=== PATIENT | female | born 1995 | race Caucasian/White ===

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

== ENCOUNTER 2017-09-20 21:13 | Outpatient (CLI) | payer MEDICAID ==
[2017-09-20 21:38] VITALS: BP 111/58
[2017-09-20] MEDS ORDERED: LACTATED RINGERS 500 ML IV ONE (22:10)
[2017-09-20] MEDS ORDERED: LACTATED RINGERS 1,000 ML ONE (22:22)
[2017-09-20 23:44] LABS: Bilirubin,Urine NEG (Negative); Blood,Urine NEG (Negative); Color,Urine Yellow (Yellow); Mucus,Urine 3+ /HPF
[2017-09-21] MEDS ORDERED: PERCOCET 5/325 PO ONE (00:09)
== END 2017-09-21 00:43 | disposition home or self-care (01) ==
LOC: TRG 21:13
PROVIDERS: ATTEND Obstetrics & Gynecology
DX: O47.02 False labor before 37 completed weeks of gestation, second trimester (principal); Z3A.22 22 weeks gestation of pregnancy
CPT/HCPCS: 59025; 81001; 96360; J7120

== ENCOUNTER 2017-10-30 21:56 | Outpatient (CLI) | payer MEDICAID ==
[2017-10-30] MEDS ORDERED: LACTATED RINGERS 1,000 ML IV ONE (22:20)
[2017-10-30 22:40] VITALS: BP 113/55
[2017-10-30] MEDS ORDERED: TYLENOL PO ONE (23:11)
== END 2017-10-30 23:38 | disposition home or self-care (01) ==
LOC: TRG 21:56
PROVIDERS: ATTEND Obstetrics & Gynecology
DX: O26.892 Other specified pregnancy related conditions, second trimester (principal); R42 Dizziness and giddiness; Z87.891 Personal history of nicotine dependence; Z3A.27 27 weeks gestation of pregnancy
CPT/HCPCS: 59025; 82962

== ENCOUNTER 2018-01-06 21:02 | Outpatient (CLI) | payer MEDICAID ==
[2018-01-06 22:54] VITALS: BP 125/74
== END 2018-01-06 22:56 | disposition home or self-care (01) ==
LOC: TRG 21:02
PROVIDERS: ATTEND Obstetrics & Gynecology
DX: O47.1 False labor at or after 37 completed weeks of gestation (principal); Z3A.38 38 weeks gestation of pregnancy; Z87.891 Personal history of nicotine dependence
CPT/HCPCS: 59025

== ENCOUNTER 2018-09-10 15:17 | Emergency (ER) | payer MEDICAID ==
--- NOTE | 2018-09-10 15:27 | Emergency Department Report ---
Blank Doc - Documentation Documentation: This is a 23-year-old female that presents with pelvic pain. Stated has posit esther test at home 2 days ago. Denies any vaginal bleeding. This initial assessment/diagnostic orders/clinical plan/treatment(s) is/are subject to change based on patient's health status, clinical progression and re- assessment by fellow clinical providers in the ED. Further treatment and workup at subsequent clinical providers discretion. Patient/guardians urged not to elope from the ED as their condition may be serious if not clinically assessed and managed. Initial orders include: 1- Patient sent to [facility] for further evaluation and treatment 2- labs 3- US OB
[2018-09-10 15:28] VITALS: BP 116/57
[2018-09-10 15:56] LABS: Eosinophils # (Auto) 0.1 K/mm3 (0.0-0.4); Eosinophils % (Auto) 0.8 % (0.0-4.3); Hematocrit 37.2 % (30.3-42.9); Hemoglobin 12.4 gm/dl (10.1-14.3); Lymphocytes % (Auto) 41.2 % (13.4-35.0); Mean Corpuscular HGB Conc 33 % (30-34); Mean Corpuscular Volume 84 fl (79-97); Monocytes # (Auto) 0.5 K/mm3 (0.0-0.8); Monocytes % (Auto) 6.6 % (0.0-7.3); Platelet Count 243 K/mm3 (140-440); Red Blood Count 4.42 M/mm3 (3.65-5.03); Red Cell Distribution Width 15.8 % (13.2-15.2)
[2018-09-10 15:59] LABS: Basophils % (Auto) 0.5 % (0.0-1.8)
[2018-09-10 16:02] LABS: Bacteria,Urine 1+ /HPF (Negative); Bilirubin,Urine NEG (Negative); Blood,Urine NEG (Negative); Color,Urine Yellow (Yellow); Mucus,Urine 3+ /HPF; Urobilinogen,Urine < 2.0 mg/dL (<2.0)
== END 2018-09-10 16:55 | disposition left against medical advice (07) ==
LOC: ED 15:17
DX: O26.891 Other specified pregnancy related conditions, first trimester (principal); R10.2 Pelvic and perineal pain; Z3A.01 Less than 8 weeks gestation of pregnancy; Z53.21 Procedure and treatment not carried out due to patient leaving prior to being seen by health care provider
CPT/HCPCS: 36415; 81001; 84702; 85025

== ENCOUNTER 2019-05-03 01:15 | Emergency (ER) | payer MEDICAID ==
[2019-05-03] MEDS ORDERED: SODIUM CHLORIDE 0.9% 1000 ML 1,000 ML IV ONE (01:33)
[2019-05-03] MEDS ORDERED: ONDANSETRON 4 MG/2 ML INJ IV ONE (01:33)
--- NOTE | 2019-05-03 01:37 | Emergency Department Report ---
HPI - General Chief Complaint: Abdominal Pain Time Seen by Provider: 05/03/19 01:22 - HPI HPI: 23-year-old -K[place] female presents to the emergency department with a complaint of abdominal and pelvic pain, as well as some nausea without vomiting, that started earlier today. The patient gave about 1 week ago at [facility]. It was a vaginal delivery in a full-term gestation. Patient denies any complications with the or delivery. She still has some mild vaginal bleeding since the delivery. She denies any discharge, dysuria, fever. She tried taking some ibuprofen but says that this irritated her abdomen even worse. No recent travel or sick contacts at home. Her [facility] [employer] is through [facility]. ED Past Medical Hx - Past Medical History Previous Medical History?: No Hx Hypertension: No Hx Diabetes: No Hx Deep Vein Thrombosis: No Hx Renal Disease: No Hx Sickle Cell Disease: No Hx Seizures: No Hx Asthma: No Hx HIV: No - Surgical History Past Surgical History?: No - Social History Smoking Status: Never Smoker Substance Use Type: None - Medications Home Medications: Home Medications Medication Instructions Recorded Confirmed Last Taken Type Ferrous Sulfate [Feosol 325 MG tab] 325 mg PO BID #60 tablet 01/12/18 Unknown Rx Ibuprofen [Motrin] 800 mg PO Q8HR PRN #30 tablet 01/12/18 Unknown Rx Pnv No.95/Ferrous Fum/Folic AC 1 tab PO DAILY 01/12/18 01/12/18 Unknown History [ Formula Tablet] Vit Calc,Iron,Folic 1 each PO DAILY #30 tablet 01/12/18 Unknown Rx [ Vitamins] HYDROcodone/APAP 5-325 [Irving 1 each PO Q6HR PRN #10 tablet 05/03/19 Unknown Rx 5-325 mg TAB] Ondansetron [Zofran Odt] 4 mg PO Q8HR PRN #14 tab.rapdis 05/03/19 Unknown Rx Sulfamethoxazole/Trimethoprim 1 each PO BID #14 tablet 05/03/19 Unknown Rx [Bactrim DS TAB] ED Review of Systems ROS: Stated complaint: ABD PAIN/POST DELIVERY Other details as noted in HPI Comment: All other systems reviewed and negative Constitutional: denies: chills, fever Eyes: denies: eye pain, vision change ENT: denies: ear pain Respiratory: denies: cough, shortness of breath Cardiovascular: denies: chest pain, palpitations Gastrointestinal: abdominal pain, nausea. denies: vomiting Genitourinary: other (pelvic pain). denies: dysuria, discharge Musculoskeletal: denies: back pain, arthralgia Skin: denies: rash, lesions Neurological: denies: headache, weakness Physical Exam - Physical Exam Vital Signs: Vital Signs 05/03/19 05/03/19 01:23 01:24 Temperature 99 F 99 F Pulse Rate 96 H 96 H Respiratory 16 16 Rate Blood Pressure 96/57 Blood Pressure 96/57 [Left] O2 Sat by Pulse 98 98 Oximetry Physical Exam: GENERAL: The patient is well-developed well-nourished. HEENT: Normocephalic. Atraumatic. Patient has moist mucous membranes. EYES: Extraocular motions are intact. NECK: Supple. Trachea is midline. CHEST/LUNGS: Clear to auscultation. There is no respiratory distress noted. HEART/CARDIOVASCULAR: Regular. There is no tachycardia. There is no murmur. ABDOMEN: Abdomen is soft. Lower abdominal tenderness to palpation. No guarding. Patient has normal bowel sounds. There is no abdominal distention. SKIN:Skin is warm and dry. . NEURO: The patient is awake, alert, and oriented. The patient is cooperative. The patient has no focal neurologic deficits. Normal speech. MUSCULOSKELETAL: There is no tenderness or deformity. There is no evidence of acute injury. ED Course Vital Signs 05/03/19 05/03/19 01:23 01:24 Temperature 99 F 99 F Pulse Rate 96 H 96 H Respiratory 16 16 Rate Blood Pressure 96/57 Blood Pressure 96/57 [Left] O2 Sat by Pulse 98 98 Oximetry - Reevaluation(s) Reevaluation #1: 05/03/19 04:22 I was able to obtain the CT scan of the abdomen and pelvis with IV contrast that was performed earlier in the day at [facility]. These results show nonspecific fat stranding along both paracolic gutters without significant bowel wall thickening. The appendix is normal and therefore a colitis is suspected, those these findings may be related to recent postoperative state. Prominence of the uterus is also likely related to the patient being recently . ED Medical Decision Making - Lab Data Result diagrams: 05/03/19 01:38 05/03/19 01:38 - Radiology Data Radiology results: report reviewed, image reviewed interpreted by me: Chest x-ray does not show any pleural effusions, pneumonia, pneumothorax, focal consolidation, or any other acute process. Abdominal x-ray shows nonspecific nonobstructive bowel gas. Pelvic ultrasound complete INDICATION: Pelvic pain, vaginal delivery one week ago FINDINGS: uterus is noted. There is some mild thickening of the endometrial cavity measuring 2.3 cm. There is no Doppler signal within the endometrial cavity. The uterus measures 15 cm in length. The ovaries are normal in appearance measuring 3 and 2.8 cm respectively. There is arterial flow in both ovaries. There is a small amount of free fluid in the cul-de-sac. IMPRESSION: There is thickening of the endometrium. There is no Doppler signal or vascularity within the endometrial cavity to suggest retained products of gestation. Signer Name: Jam Bhatia MD - Medical Decision Making This patient presents with a one-day history of some lower abdominal pain, nausea and vomiting. She is about one week status post vaginal delivery that was done at [facility]. At first, the patient had failed to mention that she had gone to [facility] this morning for her same symptoms and had a CT scan done at that time. On examination she is tender to palpation but the abdomen is soft, nondistended and nontoxic in appearance. Her labs have so far been unremarkable including CBC and CMP. I was able to obtain the CT scan results from [place] and it showed the potential for some colitis. A transvaginal ultrasound was done here that did not show any ovarian torsion or products of retained conception and just showed a slightly thickened uterus. Her vital signs have been stable throughout her ED course. There is been no further vomiting since being in the emergency department. She appears safe for discharg e home. She has been given some antibiotics for this potential colitis, a small amount of pain medication and some Zofran ODT for any further nausea or vomiting. She has been instructed to return to the ER with any worsening of her symptoms or any acute distress. I did check the [facility] prescription monitoring and the patient has only one filled prescription for a scheduled medication within the last year. - Differential Diagnosis ovarian torsion, products of retained conception, colitis, diverticulitis Critical Care Time: No Critical care attestation.: If time is entered above; I have spent that time in minutes in the direct care of this critically ill patient, excluding procedure time. ED Disposition Clinical Impression: Colitis Abdominal pain Qualifiers: Abdominal location: unspecified location Qualified Code(s): R10.9 - Unspecified abdominal pain Disposition: TO HOME OR SELFCARE Is pt being admited?: No Condition: Stable Instructions: Abdominal Pain (ED), Infectious Colitis (ED) Additional Instructions: Please follow up with your primary care physician and [employer]. I am giving you a referral for [place] to follow up regarding your abdominal pains. Take the antibiotics as prescribed. Return to the emergency Department with any worsening of your symptoms or any acute distress. Prescriptions: Sulfamethoxazole/Trimethoprim [Bactrim DS TAB] 1 each PO BID #14 tablet HYDROcodone/APAP 5-325 [Irving 5-325 mg TAB] 1 each PO Q6HR PRN #10 tablet PRN Reason: Pain Ondansetron [Zofran Odt] 4 mg PO Q8HR PRN #14 tab.rapdis PRN Reason: Nausea Referrals: [facility] [Provider Group] - 2-3 Days PCP, Your [Other] - 2-3 Days OBGYN, Your [Other] - 2-3 Days Time of Disposition: 04:24
[2019-05-03 01:51] LABS: Basophils % (Auto) 0.1 % (0.0-1.8); Eosinophils % (Auto) 0.2 % (0.0-4.3); Hematocrit 36.8 % (30.3-42.9); Hemoglobin 11.9 gm/dl (10.1-14.3); Lymphocytes # (Auto) 0.8 K/mm3 (1.2-5.4); Lymphocytes % (Auto) 7.3 % (13.4-35.0); Mean Corpuscular HGB Conc 32 % (30-34); Mean Corpuscular Volume 85 fl (79-97); Monocytes # (Auto) 0.4 K/mm3 (0.0-0.8); Monocytes % (Auto) 3.4 % (0.0-7.3); Platelet Count 306 K/mm3 (140-440); Red Blood Count 4.33 M/mm3 (3.65-5.03); Red Cell Distribution Width 15.8 % (13.2-15.2)
[2019-05-03 02:11] LABS: Alanine Aminotransferase 18 units/L (7-56); Albumin 3.5 g/dL (3.9-5); BUN/Creatinine Ratio 13; Blood Urea Nitrogen 9 mg/dL (7-17); Calcium 8.7 mg/dL (8.4-10.2); Hemolysis Index 0
[2019-05-03 02:12] LABS: Bilirubin,Direct < 0.2 mg/dL (0-0.2)
--- NOTE | 2019-05-03 02:19 | XRay Report ---
ABDOMEN 1 VIEW(S) INDICATION / CLINICAL INFORMATION: Abd pain, recent vag delivery. COMPARISON: None available. FINDINGS: TUBES / LINES: None. BOWEL GAS PATTERN/EXTRALUMINAL GAS: There is contrast media in the colon. No pneumatosis or secondary signs of free air. ADDITIONAL FINDINGS: There is contrast in the urinary bladder. IMPRESSION: 1. There is contrast in the colon in the urinary bladder indicating recent imaging, presumably recent abdominal CT. No free air is seen. There is minimal subsegmental atelectasis in the right lung base. Signer Name: Jam Bhatia MD Signed: 05/03/2019 2:15 AM Workstation Name: [id number]
--- NOTE | 2019-05-03 04:09 | Ultrasound Report ---
Pelvic ultrasound complete INDICATION: Pelvic pain, vaginal delivery one week ago FINDINGS: uterus is noted. There is some mild thickening of the endometrial cavity measuri ng 2.3 cm. There is no Doppler signal within the endometrial cavity. The uterus measures 15 cm in length. The ovaries are normal in appearance measuring 3 and 2.8 cm respectively. There is arterial flow in b oth ovaries. There is a small amount of free fluid in the cul-de-sac. IMPRESSION: There is thickening of the endometrium. There is no Doppler signal or vascularity within the endometr ial cavity to suggest retained products of gestation. Signer Name: Jam Bhatia MD Signed: 05/03/2019 4:05 AM Workstation Name: [id number]
[2019-05-03 04:53] VITALS: BP 109/64
== END 2019-05-03 05:04 | disposition home or self-care (01) ==
LOC: ED 01:15
DX: K52.9 Noninfective gastroenteritis and colitis, unspecified (principal); Z79.899 Other long term (current) drug therapy
CPT/HCPCS: 36415; 74022; 80048; 80076; 83690; 85025; 93975; 96361; 96374; 99285; J2405; J7030

== ENCOUNTER 2021-01-30 17:33 | Emergency (ER) | payer MEDICAID ==
[2021-01-30 17:51] VITALS: BP 129/70
--- NOTE | 2021-01-30 18:06 | Emergency Department Report ---
ED ENT HPI - General Chief complaint: Headache Stated complaint: LEFT SIDE FACE HURT,MIGRANE X2 Time Seen by Provider: 01/30/21 17:56 Source: patient Mode of arrival: Ambulatory Limitations: No Limitations - History of Present Illness Initial comments: Patient is a 25-year-old female who presents emergency room with complaints of right lower dental pain that began yesterday. He states that she has an impacted wisdom tooth she states that she saw a dentist a couple weeks ago and needs to have the wisdom tooth extracted. She states her next appointment is not until March she states that she has been taking Tylenol without much relief. She states that she is also noticed some mild swelling in that region. She denies any fever, vomiting, difficulty swallowing, difficulty breathing. She states it is causing her to have a headache due to the dental pain. No past medical history. No allergies to medications. She states that she is 7 weeks and her [employer] is at [employer]. - Related Data Home Medications Medication Instructions Recorded Confirmed Last Taken Pnv No.95/Ferrous Fum/Folic AC 1 tab PO DAILY 01/12/18 01/12/18 Unknown [ Formula Tablet] Previous Rx's Medication Instructions Recorded Last Taken Type Ferrous Sulfate [Feosol 325 MG tab] 325 mg PO BID #60 tablet 01/12/18 Unknown Rx Ibuprofen [Motrin] 800 mg PO Q8HR PRN #30 tablet 01/12/18 Unknown Rx Vit Calc,Iron,Folic 1 each PO DAILY #30 tablet 01/12/18 Unknown Rx [ Vitamins] HYDROcodone/APAP 5-325 [[place] 1 each PO Q6HR PRN #10 tablet 05/03/19 Unknown Rx 5-325 mg TAB] Ondansetron [Zofran Odt] 4 mg PO Q8HR PRN #14 tab.rapdis 05/03/19 Unknown Rx Sulfamethoxazole/Trimethoprim 1 each PO BID #14 tablet 05/03/19 Unknown Rx [Bactrim DS TAB] Acetaminophen [Tylenol] 650 mg PO Q8HR PRN #30 capsule 01/30/21 Unknown Rx Chlorhexidine Mouthwash [Peridex] 15 ml MM BID #1 bottle 01/30/21 Unknown Rx Penicillin Vk [Veetids TAB] 500 mg PO QID 7 Days #56 tablet 01/30/21 Unknown Rx Allergies Allergy/AdvReac Type Severity Reaction Status Date / Time No Known Allergies Allergy Verified 09/10/18 15:28 ED Dental HPI - General Chief complaint: Headache Stated complaint: LEFT SIDE FACE HURT,MIGRANE X2 Time Seen by Provider: 01/30/21 17:56 Source: patient Mode of arrival: Ambulatory Limitations: No Limitations - Related Data Home Medications Medication Instructions Recorded Confirmed Last Taken Pnv No.95/Ferrous Fum/Folic AC 1 tab PO DAILY 01/12/18 01/12/18 Unknown [ Formula Tablet] Previous Rx's Medication Instructions Recorded Last Taken Type Ferrous Sulfate [Feosol 325 MG tab] 325 mg PO BID #60 tablet 01/12/18 Unknown Rx Ibuprofen [Motrin] 800 mg PO Q8HR PRN #30 tablet 01/12/18 Unknown Rx Vit Calc,Iron,Folic 1 each PO DAILY #30 tablet 01/12/18 Unknown Rx [ Vitamins] HYDROcodone/APAP 5-325 [[place] 1 each PO Q6HR PRN #10 tablet 05/03/19 Unknown Rx 5-325 mg TAB] Ondansetron [Zofran Odt] 4 mg PO Q8HR PRN #14 tab.rapdis 05/03/19 Unknown Rx Sulfamethoxazole/Trimethoprim 1 each PO BID #14 tablet 05/03/19 Unknown Rx [Bactrim DS TAB] Acetaminophen [Tylenol] 650 mg PO Q8HR PRN #30 capsule 01/30/21 Unknown Rx Chlorhexidine Mouthwash [Peridex] 15 ml MM BID #1 bottle 01/30/21 Unknown Rx Penicillin Vk [Veetids TAB] 500 mg PO QID 7 Days #56 tablet 01/30/21 Unknown Rx Allergies Allergy/AdvReac Type Severity Reaction Status Date / Time No Known Allergies Allergy Verified 09/10/18 15:28 ED Review of Systems ROS: Stated complaint: LEFT SIDE FACE HURT,MIGRANE X2 Other details as noted in HPI Comment: All other systems reviewed and negative ED Past Medical Hx - Past Medical History Hx Hypertension: No Hx Diabetes: No Hx Deep Vein Thrombosis: No Hx Renal Disease: No Hx Sickle Cell Disease: No Hx Seizures: No Hx Asthma: No Hx HIV: No - Social History Smoking Status: Never Smoker Substance Use Type: None - Medications Home Medications: Home Medications Medication Instructions Recorded Confirmed Last Taken Type Ferrous Sulfate [Feosol 325 MG tab] 325 mg PO BID #60 tablet 01/12/18 Unknown Rx Ibuprofen [Motrin] 800 mg PO Q8HR PRN #30 tablet 01/12/18 Unknown Rx Pnv No.95/Ferrous Fum/Folic AC 1 tab PO DAILY 01/12/18 01/12/18 Unknown History [ Formula Tablet] Vit Calc,Iron,Folic 1 each PO DAILY #30 tablet 01/12/18 Unknown Rx [ Vitamins] HYDROcodone/APAP 5-325 [[place] 1 each PO Q6HR PRN #10 tablet 05/03/19 Unknown Rx 5-325 mg TAB] Ondansetron [Zofran Odt] 4 mg PO Q8HR PRN #14 tab.rapdis 05/03/19 Unknown Rx Sulfamethoxazole/Trimethoprim 1 each PO BID #14 tablet 05/03/19 Unknown Rx [Bactrim DS TAB] Acetaminophen [Tylenol] 650 mg PO Q8HR PRN #30 capsule 01/30/21 Unknown Rx Chlorhexidine Mouthwash [Peridex] 15 ml MM BID #1 bottle 01/30/21 Unknown Rx Penicillin Vk [Veetids TAB] 500 mg PO QID 7 Days #56 tablet 01/30/21 Unknown Rx ED Physical Exam - General Limitations: No Limitations General appearance: alert, in no apparent distress - Head Head exam: Present: atraumatic, normocephalic - Eye Eye exam: Present: normal appearance - ENT ENT exam: Present: mucous membranes moist, other (impacted right lower [place] tooth with edema of the gumline, no fluctuance or drainage, uvula is midline, no uvular edema or deviation, no trismus, no tongue elevation, no muffled voice, no submandibular edema) - Respiratory Respiratory exam: Absent: respiratory distress, accessory muscle use - Neurological Exam Neurological exam: Present: alert, oriented X3 - Psychiatric Psychiatric exam: Present: normal affect, normal mood - Skin Skin exam: Present: warm, dry, intact ED Course Vital Signs 01/30/21 17:50 Temperature 99.3 F Pulse Rate 90 Respiratory 18 Rate Blood Pressure 129/70 [Right] O2 Sat by Pulse 100 Oximetry ED Medical Decision Making - Medical Decision Making Patient is a 25-year-old female who presents emergency room with complaints of right lower dental pain that began yesterday. He states that she has an impacted wisdom tooth she states that she saw a dentist a couple weeks ago and needs to have the wisdom tooth extracted. She states her next appointment is not until March she states that she has been taking Tylenol without much relief. She states that she is also noticed some mild swelling in that region. She denies any fever, vomiting, difficulty swallowing, difficulty breathing. She states it is causing her to have a headache due to the dental pain. No past medical history. No allergies to medications. She states that she is 7 weeks and her [employer] is at [employer]. Vitals are stable. On exam:impacted right lower [place] tooth with edema of the gumline, no fluctuance or drainage, uvula is midline, no uvular edema or deviation, no trismus, no tongue elevation, no muffled voice, no submandibular edema. Examination appears consistent with possible early dental abscess vs gingivitis. Patient given prescription for medication. Advised patient Please take medication as prescribed. Follow-up with a dentist. Follow-up with your [employer]. Return to emergency room for any new or worsening symptoms. Critical care attestation.: If time is entered above; I have spent that time in minutes in the direct care of this critically ill patient, excluding procedure time. ED Disposition Clinical Impression: Dentalgia, Gingivitis Disposition: 01 HOME / SELF CARE / HOMELESS Is pt being admited?: No Does the pt Need Aspirin: No Condition: Stable Additional Instructions: Please take medication as prescribed. Follow-up with a dentist. Follow-up with your [employer]. Return to emergency room for any new or worsening symptoms. 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
== END 2021-01-30 18:45 | disposition home or self-care (01) ==
LOC: ED 17:33
DX: K08.89 Other specified disorders of teeth and supporting structures (principal); K05.10 Chronic gingivitis, plaque induced
CPT/HCPCS: 99281

== ENCOUNTER 2021-05-30 18:54 | Emergency (ER) | payer MEDICAID ==
--- NOTE | 2021-05-30 22:22 | Emergency Department Report ---
ED ENT HPI - General Chief complaint: Dental/Oral Stated complaint: TOOTHACHE Source: patient Mode of arrival: Ambulatory Limitations: No Limitations - History of Present Illness Initial comments: 26-year-old presents to the ED complaining toothache. Patient states that she has a dental appointment next week to have the dental extraction. She is currently 6 months . Patient denies any difficult swallowing. She states that the pain is unbearable and she is unable to sleep. Patient is alert and oriented x3 no acute distress noted no ill appearance noted. She denies any abdominal pain at present. MD complaint: tooth pain Onset/Timin -: week(s) Severity: moderate Severity scale (0 -10): 8 Quality: aching Improves with: none Worsens with: none Context- Dental: poor dental care - Related Data Home Medications Medication Instructions Recorded Confirmed Last Taken Pnv No.95/Ferrous Fum/Folic AC 1 tab PO DAILY 01/12/18 01/12/18 Unknown [ Formula Tablet] Previous Rx's Medication Instructions Recorded Last Taken Type Ferrous Sulfate [Feosol 325 MG tab] 325 mg PO BID #60 tablet 01/12/18 Unknown Rx Ibuprofen [Motrin] 800 mg PO Q8HR PRN #30 tablet 01/12/18 Unknown Rx Vit Calc,Iron,Folic 1 each PO DAILY #30 tablet 01/12/18 Unknown Rx [ Vitamins] HYDROcodone/APAP 5-325 [[place] 1 each PO Q6HR PRN #10 tablet 05/03/19 Unknown Rx 5-325 mg TAB] Ondansetron [Zofran Odt] 4 mg PO Q8HR PRN #14 tab.rapdis 05/03/19 Unknown Rx Sulfamethoxazole/Trimethoprim 1 each PO BID #14 tablet 05/03/19 Unknown Rx [Bactrim DS TAB] Acetaminophen [Tylenol] 650 mg PO Q8HR PRN #30 capsule 01/30/21 Unknown Rx Chlorhexidine Mouthwash [Peridex] 15 ml MM BID #1 bottle 01/30/21 Unknown Rx Penicillin Vk [Veetids TAB] 500 mg PO QID 7 Days #56 tablet 01/30/21 Unknown Rx Amoxicillin/Potassium Clav 1 each PO BID 10 Days #20 tab 05/30/21 Unknown Rx [Augmentin 875-125 Tablet] Allergies Allergy/AdvReac Type Severity Reaction Status Date / Time No Known Allergies Allergy Verified 09/10/18 15:28 ED Dental HPI - General Chief complaint: Dental/Oral Stated complaint: TOOTHACHE Source: patient Mode of arrival: Ambulatory Limitations: No Limitations - Related Data Home Medications Medication Instructions Recorded Confirmed Last Taken Pnv No.95/Ferrous Fum/Folic AC 1 tab PO DAILY 01/12/18 01/12/18 Unknown [ Formula Tablet] Previous Rx's Medication Instructions Recorded Last Taken Type Ferrous Sulfate [Feosol 325 MG tab] 325 mg PO BID #60 tablet 01/12/18 Unknown Rx Ibuprofen [Motrin] 800 mg PO Q8HR PRN #30 tablet 01/12/18 Unknown Rx Vit Calc,Iron,Folic 1 each PO DAILY #30 tablet 01/12/18 Unknown Rx [ Vitamins] HYDROcodone/APAP 5-325 [[place] 1 each PO Q6HR PRN #10 tablet 05/03/19 Unknown Rx 5-325 mg TAB] Ondansetron [Zofran Odt] 4 mg PO Q8HR PRN #14 tab.rapdis 05/03/19 Unknown Rx Sulfamethoxazole/Trimethoprim 1 each PO BID #14 tablet 05/03/19 Unknown Rx [Bactrim DS TAB] Acetaminophen [Tylenol] 650 mg PO Q8HR PRN #30 capsule 01/30/21 Unknown Rx Chlorhexidine Mouthwash [Peridex] 15 ml MM BID #1 bottle 01/30/21 Unknown Rx Penicillin Vk [Veetids TAB] 500 mg PO QID 7 Days #56 tablet 01/30/21 Unknown Rx Amoxicillin/Potassium Clav 1 each PO BID 10 Days #20 tab 05/30/21 Unknown Rx [Augmentin 875-125 Tablet] Allergies Allergy/AdvReac Type Severity Reaction Status Date / Time No Known Allergies Allergy Verified 09/10/18 15:28 ED Review of Systems ROS: Stated complaint: TOOTHACHE Other details as noted in HPI Constitutional: denies: chills, fever Eyes: denies: eye pain, eye discharge, vision change ENT: dental pain. denies: ear pain, throat pain Respiratory: denies: cough, shortness of breath, wheezing Cardiovascular: denies: chest pain, palpitations Endocrine: no symptoms reported Gastrointestinal: denies: abdominal pain, nausea, diarrhea Genitourinary: denies: urgency, dysuria, discharge Musculoskeletal: denies: back pain, joint swelling, arthralgia Skin: denies: rash, lesions Neurological: denies: headache, weakness, paresthesias Psychiatric: denies: anxiety, depression Hematological/Lymphatic: denies: easy bleeding, easy bruising ED Past Medical Hx - Past Medical History Previous Medical History?: Yes Hx Hypertension: No Hx Diabetes: No Hx Deep Vein Thrombosis: No Hx Renal Disease: No Hx Sickle Cell Disease: No Hx Seizures: No Hx Asthma: No Hx HIV: No Additional medical history: toothache pain - Surgical History Past Surgical History?: No - Social History Smoking Status: Never Smoker Substance Use Type: None - Medications Home Medications: Home Medications Medication Instructions Recorded Confirmed Last Taken Type Ferrous Sulfate [Feosol 325 MG tab] 325 mg PO BID #60 tablet 01/12/18 Unknown Rx Ibuprofen [Motrin] 800 mg PO Q8HR PRN #30 tablet 01/12/18 Unknown Rx Pnv No.95/Ferrous Fum/Folic AC 1 tab PO DAILY 01/12/18 01/12/18 Unknown History [ Formula Tablet] Vit Calc,Iron,Folic 1 each PO DAILY #30 tablet 01/12/18 Unknown Rx [ Vitamins] HYDROcodone/APAP 5-325 [[place] 1 each PO Q6HR PRN #10 tablet 05/03/19 Unknown Rx 5-325 mg TAB] Ondansetron [Zofran Odt] 4 mg PO Q8HR PRN #14 tab.rapdis 05/03/19 Unknown Rx Sulfamethoxazole/Trimethoprim 1 each PO BID #14 tablet 05/03/19 Unknown Rx [Bactrim DS TAB] Acetaminophen [Tylenol] 650 mg PO Q8HR PRN #30 capsule 01/30/21 Unknown Rx Chlorhexidine Mouthwash [Peridex] 15 ml MM BID #1 bottle 01/30/21 Unknown Rx Penicillin Vk [Veetids TAB] 500 mg PO QID 7 Days #56 tablet 01/30/21 Unknown Rx Amoxicillin/Potassium Clav 1 each PO BID 10 Days #20 tab 05/30/21 Unknown Rx [Augmentin 875-125 Tablet] ED Physical Exam - General Limitations: No Limitations General appearance: alert, in no apparent distress - Head Head exam: Present: atraumatic, normocephalic - Eye Eye exam: Present: normal appearance - ENT ENT exam: Present: mucous membranes moist - Neck Neck exam: Present: normal inspection - Respiratory Respiratory exam: Present: normal lung sounds bilaterally. Absent: respiratory distress - Cardiovascular Cardiovascular Exam: Present: regular rate, normal rhythm. Absent: systolic murmur, diastolic murmur, rubs, gallop - GI/Abdominal GI/Abdominal exam: Present: soft, normal bowel sounds - Extremities Exam Extremities exam: Present: normal inspection - Back Exam Back exam: Present: normal inspection - Neurological Exam Neurological exam: Present: alert, oriented X3 - Psychiatric Psychiatric exam: Present: normal affect, normal mood - Skin Skin exam: Present: warm, dry, intact, normal color. Absent: rash ED Course Vital Signs 05/30/21 05/30/21 19:18 23:00 Temperature 98.9 F 98.5 F Pulse Rate 96 H 90 Respiratory 20 20 Rate Blood Pressure 102/50 115/61 [Right] O2 Sat by Pulse 99 100 Oximetry ED Medical Decision Making - Medical Decision Making 26-year-old presents to the ED complaining toothache. Patient states that she has a dental appointment next week to have the dental extraction. She is currently 6 months . Patient denies any difficult swallowing. She states that the pain is unbearable and she is unable to sleep. Patient is alert and oriented x3 no acute distress noted no ill appearance noted. She denies any abdominal pain at present. Dental cavity noted tooth numbers 17. Rechecked the patient is resting quietly quietly and comfortable and feeling better. I discussed the results of diagnostic study, my clinical impression and the plan for further treatment with the patient. Patient agrees with plan and discharge at this present time. All question addressed. I have given the patient instruction regarding a diagnosis ,expectation ,follow- up and return precaution. I explained to the patient that emergent condition may arise and to return to the ED for new worsen and any new persisting condition. I have explained the importance of following up with the primary care physician or referral physician listed below has instructed. The patient verbalized understanding of discharge instruction. Critical care attestation.: If time is entered above; I have spent that time in minutes in the direct care of this critically ill patient, excluding procedure time. ED Disposition Clinical Impression: Dental cavity Disposition: HOME / SELF CARE / HOMELESS Is pt being admited?: No Does the pt Need Aspirin: No Condition: Stable Instructions: Preventive Dental Care, Adult Additional Instructions: Take medication as prescribed Keep Appointment with dentist Prescriptions: Amoxicillin/Potassium Clav [Augmentin 875-125 Tablet] 1 each PO BID 10 Days #20 tab Forms: Work/School Release Form(ED)
[2021-05-30 23:03] VITALS: BP 115/61
== END 2021-05-30 23:14 | disposition home or self-care (01) ==
LOC: ED 18:54
DX: K02.9 Dental caries, unspecified (principal)
CPT/HCPCS: 99282